=== PATIENT | male | born 1950 | race Caucasian/White ===

== ENCOUNTER 2019-06-01 16:07 | Inpatient (IN) | payer MEDICARE, OTHER ==
[~2019-06-01] VITALS: Ht 185.4 cm; Wt 90.7 kg
--- NOTE | 2019-06-01 17:13 | RAD ---
EXAM: CHEST 2 VIEWS. HISTORY: Cough. COMPARISON: None. FINDINGS: Frontal and lateral views of the chest are obtained. There is a mild airspace infiltrate in the lower lobes on the lateral projection, likely on the left on comparison with a frontal projection. There is no pneumothorax or pleural effusion. The heart is not enlarged. Hyperinflation suggests chronic obstructive pulmonary disease. There are atherosclerotic calcifications of the aorta. IMPRESSION: 1. Suspect mild left lower lobe pneumonia. Follow-up to resolution is recommended. 2. Chronic obstructive pulmonary disease. Electronically signed by: Eddie Butler MD (06/01/2019 5:11 PM) [place] [id number]
[2019-06-01] MEDS ORDERED: IV NORMAL SALINE 1,000ML 1,000 ML IV SCH (17:25)
[2019-06-01] MEDS ORDERED: AZITHROMYCIN 250 MG TABLET. PO ONE (17:30)
[2019-06-01] MEDS ORDERED: IPRATRPIUM/ALBUTEROL 0.5/2.5MG 3 ML NEBU. NEB ONE (17:30)
--- NOTE | 2019-06-01 17:48 | PHYS DOC ---
Past History Past Medical History: GERD, High Cholesterol, Other Additional Past Medical Histor: NEUROPATHY Past Surgical History: No Surgical History Alcohol Use: None Drug Use: None Adult General Chief Complaint Chief Complaint: COUGH HPI HPI Patient is a 68-year-old male who presents with report of cough that has been productive for over a month now. Patient was seen about a month ago by his primary care provider who had put him on antibiotics and patient just had not improved. There are 5 people that live in the home and everybody but this patient had been diagnosed with influenza. He was seen by his primary care doctor last week and she had considered admitting him into the hospital at that time but elected not to, thinking that it was probably just influenza. Patient states that his symptoms are getting worse and he is getting short of breath. He states that he typically has walking pneumonia once a year and he is thinking that he has pneumonia again. Patient states that the shortness of breath is worsened with exertion. He states that he is also been running a fever which has been intermittent in nature.[] Review of Systems Review of Systems Constitutional: Positive fever and chills [] Respiratory: Positive productive cough and shortness of breath [] Cardiovascular: No additional information not addressed in HPI [] Musculoskeletal: Denies back pain or joint pain [] Integument: Denies rash or skin lesions [] Neurologic: Denies headache, focal weakness or sensory changes [] All other systems were reviewed and found to be within normal limits, except as documented in this note. Current Medications Current Medications Current Medications Medications (Trade) Dose Ordered Sig/[facility] Start Time Stop Time Status Last Admin Dose Admin Albuterol/ Ipratropium (Duoneb) 3 ml 1X ONCE 06/01/19 17:30 06/01/19 17:31 UNV Amoxicillin/ Clavulanate Potassium (Augmentin 875/ 125mg) 1 tab 1X ONCE 06/01/19 17:30 06/01/19 17:31 UNV Azithromycin (Zithromax) 500 mg 1X ONCE 06/01/19 17:30 06/01/19 17:31 UNV Ceftriaxone Sodium 1 gm/ Sodium Chloride 50 ml @ 100 mls/hr 1X ONCE 06/01/19 17:30 06/01/19 17:59 UNV Sodium Chloride 1,000 ml @ 1,000 mls/hr Q1H 06/01/19 17:25 06/01/19 18:24 UNV Allergies Allergies Allergies Coded Allergies Type Severity Reaction Last Updated Verified No Known Drug Allergies 06/01/19 No Physical Exam Physical Exam Constitutional: Well developed, well nourished, no acute distress, non-toxic appearance. [] HENT: Normocephalic, atraumatic, bilateral external ears normal, oropharynx moist, no oral exudates, nose normal. [] Eyes: PERRLA, EOMI, conjunctiva normal, no discharge. [] Neck: Normal range of motion, no tenderness, supple. [] Cardiovascular: Regular rate and rhythm[] Lungs & Thorax: There are rhonchi in the bilateral lung bases, left greater than right to auscultation [] Abdomen: Bowel sounds normal, soft, no tenderness. [] Skin: Warm, dry, no erythema, no rash. [] Extremities: No tenderness, no cyanosis, no clubbing, ROM intact. [] Neurologic: Alert and oriented X 3, no focal deficits noted. [] Current Patient Data Vital Signs Vital Signs Date Time Temp Pulse Resp B/P (MAP) Pulse Ox O2 Delivery O2 Flow Rate FiO2 06/01/19 16:20 97.7 64 20 93 Room Air EKG EKG [] Radiology/Procedures Radiology/Procedures [] Impressions: PROCEDURE: CHEST PA & LATERAL EXAM: CHEST 2 VIEWS. HISTORY: Cough. COMPARISON: None. FINDINGS: Frontal and lateral views of the chest are obtained. There is a mild airspace infiltrate in the lower lobes on the lateral projection, likely on the left on comparison with a frontal projection. There is no pneumothorax or pleural effusion. The heart is not enlarged. Hyperinflation suggests chronic obstructive pulmonary disease. There are atherosclerotic calcifications of the aorta. IMPRESSION: 1. Suspect mild left lower lobe pneumonia. Follow-up to resolution is recommended. 2. Chronic obstructive pulmonary disease. Electronically signed by: Eddie Butler MD (06/01/2019 5:11 PM) [facility] DICTATED AND SIGNED BY: TRISTON BUTLER MD DATE: 06/01/19 2436 Course & Med Decision Making Course & Med Decision Making Pertinent Labs and Imaging studies reviewed. (See chart for details) [] Dragon Disclaimer Dragon Disclaimer This electronic medical record was generated, in whole or in part, using a voice recognition dictation system. Departure Departure: Impression: Primary Impression: Community acquired pneumonia Disposition: 09 ADMITTED INPATIENT Admitting Physician: Guerline Pradhan Condition: IMPROVED Referrals: ERICA GLYNN MD (PCP) Problem Qualifiers Primary Impression: Community acquired pneumonia Laterality: left Lung location: lower lobe of lung Qualified Codes: J18.9 - Pneumonia, unspecified organism ALBA KRAUSE Jr. DO Jun 01, 2019 17:48
[2019-06-01] MEDS ORDERED: ONDANSETRON PF 4 MG/2 ML VIAL. IV PRN (18:00)
[2019-06-01] MEDS ORDERED: MORPHINE SULFATE 2 MG/ML DISP.SYRIN. IV PRN (18:00)
[2019-06-01 18:01] LABS: BASO % 0 % (0-3); EOS # 0.2 x10^3/uL (0.0-0.7); EOS % 2 % (0-3); HEMATOCRIT 43.1 % (39.0-53.0); HEMOGLOBIN 14.6 g/dL (13.0-17.5); LYMPH % 19 % (24-48); MEAN CORPUSCULAR HEMOGLOBIN 29 pg (25-35); MEAN CORPUSCULAR HGB CONC 34 g/dL (31-37); MEAN CORPUSCULAR VOLUME 87 fL (79-100); MONO # 0.8 x10^3/uL (0.0-1.1); MONO % 8 % (0-9); NEUT # 7.5 x10^3uL (1.8-7.7); NEUT % 71 % (31-73); PLATELET COUNT 325 x10^3/uL (140-400); RED BLOOD COUNT 4.98 x10^6/uL (4.30-5.70); RED CELL DISTRIBUTION WIDTH 14.2 % (11.5-14.5); WHITE BLOOD COUNT 10.6 x10^3/uL (4.0-11.0)
[2019-06-01 18:12] LABS: CALCIUM 8.3 mg/dL (8.5-10.1); CREATININE 0.9 mg/dL (0.7-1.3); GFR 83.9; POTASSIUM 3.6 mmol/L (3.5-5.1)
[2019-06-01 18:18] LABS: ALBUMIN/GLOBULIN RATIO 0.9 (1.0-1.7); TOTAL BILIRUBIN 0.3 mg/dL (0.2-1.0); TOTAL PROTEIN 6.2 g/dL (6.4-8.2)
[2019-06-01] MEDS ORDERED: IV NORMAL SALINE 50ML 50 ML ONE (18:18)
[2019-06-01] MEDS ORDERED: cefTRIAXone SODIUM 1 GM VIAL ONE (18:18)
[2019-06-01] MEDS ORDERED: IPRATROPIUM BROMIDE 0.06% NASAL SPRAY 15ML BOTTLE NS SCH (20:00)
[2019-06-01] MEDS ORDERED: ZOLPIDEM 5 MG TABLET. PO PRN (20:00)
[2019-06-01] MEDS ORDERED: AMOXICILLIN/K CLAV 875/125MG TABLET. PO ONE (20:00)
[2019-06-01 20:18] VITALS: BP 128/68
[2019-06-01] MEDS: IPRATRPIUM/ALBUTEROL 0.5/2.5MG 3 ML NEBU. NEB SCH (21:22)
[2019-06-01 22:45] VITALS: BP 141/67
[2019-06-02] MEDS ORDERED: ATOR10TA60 PO (02:32)
[2019-06-02] MEDS ORDERED: FINA5TAB4 PO (02:32)
[2019-06-02] MEDS ORDERED: OMEP20CA16 PO (02:32)
[2019-06-02] MEDS ORDERED: GABA600T7 PO (02:32)
[2019-06-02] MEDS ORDERED: TAMS0.4C97 PO (02:32)
[2019-06-02 05:10] VITALS: BP 144/72
[2019-06-02] MEDS: IPRATRPIUM/ALBUTEROL 0.5/2.5MG 3 ML NEBU. NEB SCH ×3 (05:20→15:53)
[2019-06-02 07:43] LABS: CALCIUM 8.1 mg/dL (8.5-10.1); GFR 74.3
[2019-06-02 07:46] LABS: BASO % 1 % (0-3); EOS # 0.2 x10^3/uL (0.0-0.7); EOS % 2 % (0-3); HEMATOCRIT 38.1 % (39.0-53.0); HEMOGLOBIN 12.9 g/dL (13.0-17.5); LYMPH # 1.8 x10^3/uL (1.0-4.8); LYMPH % 23 % (24-48); MEAN CORPUSCULAR HEMOGLOBIN 29 pg (25-35); MEAN CORPUSCULAR HGB CONC 34 g/dL (31-37); MEAN CORPUSCULAR VOLUME 86 fL (79-100); MONO # 0.6 x10^3/uL (0.0-1.1); MONO % 7 % (0-9); NEUT # 5.3 x10^3uL (1.8-7.7); NEUT % 67 % (31-73); PLATELET COUNT 277 x10^3/uL (140-400); RED BLOOD COUNT 4.41 x10^6/uL (4.30-5.70); RED CELL DISTRIBUTION WIDTH 13.8 % (11.5-14.5); WHITE BLOOD COUNT 7.9 x10^3/uL (4.0-11.0)
[2019-06-02 08:09] LABS: POTASSIUM 2.7 mmol/L (3.5-5.1)
[2019-06-02] MEDS: LACTOBACILLUS RHAMNOSUS GG 1 CAPSULE. PO SCH ×2 (08:45→21:24)
[2019-06-02] MEDS: POTASSIUM BICARB 20 MEQ EFFERVESCENT TABLET. FT SCH ×4 (08:46→21:23)
[2019-06-02 10:53] VITALS: BP 126/66
[2019-06-02 15:34] VITALS: BP 140/65
[2019-06-02] MEDS: AZITHROMYCIN 250 MG TABLET. PO SCH (17:25)
--- NOTE | 2019-06-02 18:18 | HP ---
ADMIT DATE: 06/01/2019 HISTORY OF PRESENT ILLNESS: The patient is a 68-year-old male patient who presented to the Emergency Room with complaint of cough that is productive for over a month now. The patient was seen about a month ago by his primary care provider who had put him on antibiotic and the patient just had not improved. There are five people that live in the home and everybody, but this patient has been diagnosed with influenza. He was seen by his primary doctor last week and she had considered admitting him into the hospital at that time, but elected not to thinking that it was probably just influenza. The patient states that his symptoms are getting worse and he is getting more short of breath. He states that he typically has walking pneumonia once a year and he is thinking that he has pneumonia again. His shortness of breath is worsened by exertion. He has also been running fever, which has been intermittent in nature. He was extensively investigated in the Emergency Room. His white cell count was normal. His chemistry was unremarkable. His chest x-ray showed that there is mild airspace infiltrate in the lower lobe on the lateral projection, likely on the left in comparison with the frontal projection. There is no pneumothorax, pleural effusion. The heart is not enlarged, hyperinflation to suggest chronic obstructive pulmonary disease. There is atherosclerotic calcification of the aorta. The patient was admitted with community-acquired pneumonia, was started on IV Rocephin and Zithromax. PAST MEDICAL HISTORY: Significant for hyperlipidemia and benign prostatic hypertrophy. He has also had peripheral neuropathy. PAST SURGICAL HISTORY: Significant for back surgery, left elbow surgery and left shoulder surgery. He had double hernia repair. ALLERGIES: He has no known drug allergies. MEDICATIONS: He is currently on following medications: He is on tamsulosin and Flomax 0.4 mg daily. He is on atorvastatin calcium 10 mg at bedtime, gabapentin 600 mg every 8 hours, omeprazole 20 mg once a day, finasteride 5 mg daily. FAMILY HISTORY: He has 2 brothers and 2 sisters, all diabetic. His father at the age of 39 because of alcoholic cirrhosis. Mother at the age of 62 because of alcoholism. SOCIAL HISTORY: He is , has a son and daughter. He never smoked, does not drink alcohol or use any recreational drugs. 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 REVIEW OF SYSTEMS: Unremarkable. PHYSICAL EXAMINATION: GENERAL: On arrival to the Emergency Room, he looked well and was clearly in no apparent respiratory distress. No pallor, jaundice, cyanosis or thyromegaly. No jugular venous distention. No lower limb edema. VITAL SIGNS: His heart rate was 64, blood pressure was 112/71, temperature was 97.7, respiratory rate was 20 and oxygen saturation was 93%. HEAD, EYES, EARS, NOSE AND THROAT: Showed normocephalic, atraumatic. NECK: Supple. CARDIAC: Normal first and second heart sounds. No gallop or murmur. CHEST: Clear to auscultation. No crepitation or rhonchi. Apparently in the Emergency Room, he had rhonchi bilaterally, left greater than the right. ABDOMEN: Soft, nontender. NEUROLOGIC: He was awake, alert, responding appropriately with no obvious focal deficit. LABORATORY DATA: Showed that his white cell count was 10,600, hemoglobin 14.6, hematocrit 43, MCV 87 and platelet count of 325,000. Serum sodium of 145, potassium 3.6, chloride 108, bicarbonate 26, anion gap of 11, BUN 20, creatinine 0.9, estimated GFR was 84 mL per minute. His glucose was 85, calcium was 8.3. Total bilirubin, AST, ALT, alkaline phosphatase were normal. Total protein 6.2, albumin 3. Chest x-ray showed that he has left lower lobe pneumonia. ASSESSMENT AND PLAN: The patient was admitted with community-acquired pneumonia. We will continue all his home medication, continue with Rocephin and Zithromax as well as bronchodilator and follow his labs closely. NEERAJ GONZALEZ MD DR: HEIKE/divya JOB#: [id number] / [id number]
[2019-06-02 18:55] VITALS: BP 140/67
[2019-06-02] MEDS ORDERED: GABAPENTIN 300 MG CAPSULE. PO PRN (21:00)
[2019-06-02] MEDS: ATORVASTATIN CALCIUM 10 MG TABLET. PO SCH (21:24)
[2019-06-02 22:25] VITALS: BP 133/66
--- NOTE | 2019-06-03 02:19 | PN ---
DATE: 06/02/2019 SUBJECTIVE: The patient is resting, slightly propped up in bed, continued to complain of cough with greenish sputum. Denied any chest pain. Continued to complain of some shortness of breath, particularly on exertion. No fever. PHYSICAL EXAMINATION: GENERAL: When I examined him, he looked well and was clearly in no apparent respiratory distress. VITAL SIGNS: His heart rate was 66, blood pressure 144/72, temperature 97.7, respiratory rate 20, and oxygen saturation was 92%. HEAD, EYES, EARS, NOSE AND THROAT: Normocephalic, atraumatic. NECK: Supple. CARDIAC: Normal first and second heart sounds. No gallop, rub or murmur. CHEST: Shows central trachea, equal bilateral expansion, air entry, vesicular sounds. I could not really appreciate any crepitation or rhonchi. ABDOMEN: Soft, nontender. NEUROLOGIC: He was grossly intact. LABORATORY DATA: His lab work this morning showed a serum sodium of 145, potassium 3.7, chloride 108, bicarbonate 24, anion gap of 13, BUN 13, creatinine 1, estimated GFR was 74 mL per minute, his glucose was 109, calcium was 8.1. His white cell count was 7900, hemoglobin 12.9, hematocrit 38, MCV 86 and platelet count 277,000. ASSESSMENT: 1. Community-acquired pneumonia for which he is on Zithromax and ceftriaxone. 2. Gastroesophageal reflux disease. 3. Hyperlipidemia. 4. Benign prostatic hypertrophy. 5. Hypokalemia. PLAN: To replenish his potassium and we will repeat all his labs tomorrow. NEERAJ GONZALEZ MD DR: HEIKE/divya JOB#: [id number] / [id number]
[2019-06-03 05:58] VITALS: BP_SYST 128; BP_SYST 163; BP_DIAS 66; BP_DIAS 99
[2019-06-03 07:58] LABS: CALCIUM 8.4 mg/dL (8.5-10.1); CREATININE 0.9 mg/dL (0.7-1.3); GFR 83.9; POTASSIUM 3.7 mmol/L (3.5-5.1)
[2019-06-03] MEDS ORDERED: POTASSIUM CHLORIDE 20 MEQ TABLET.ER. PO ONE (08:15)
[2019-06-03] MEDS: PANTOPRAZOLE 40 MG TABLET. PO SCH (08:17)
[2019-06-03] MEDS: TAMSULOSIN 0.4 MG CAP.ER.24H. PO SCH (08:17)
[2019-06-03] MEDS: LACTOBACILLUS RHAMNOSUS GG 1 CAPSULE. PO SCH ×2 (08:17→21:08)
[2019-06-03] MEDS: FINASTERIDE 5 MG TABLET PO SCH (08:17)
[2019-06-03 10:56] VITALS: BP 116/70
[2019-06-03] MEDS: methylPREDNISolone SOD SUCC PF 40 MG/ML VIAL. IV SCH ×2 (14:07→21:08)
[2019-06-03 14:35] VITALS: BP 149/81
--- NOTE | 2019-06-03 15:19 | PN ---
DATE: 06/03/2019 SUBJECTIVE: The patient is resting, slightly propped up in bed, continued to have recurrent bouts of hacking cough with scanty yellowish sputum. Denied any chest pain. Did have some chest tightness and wheezing. PHYSICAL EXAMINATION: GENERAL: When I examined him, he looked well, slightly tachypneic, but there is no jaundice, cyanosis or thyromegaly. No jugular venous distension. No limb edema. VITAL SIGNS: Heart rate was 68, blood pressure 116/70, temperature 97.8, respiratory rate 20, and oxygen saturation was 92%. HEAD, EYES, EARS, NOSE AND THROAT: Showed normocephalic, atraumatic. NECK: Supple. HEART: Showed normal first and second heart sounds. No gallop or murmur. CHEST: Examination of the chest showed that he has central trachea, equally reduced expansion, reduced air entry, vesicular sounds with bilateral scattered rhonchi and crepitation mostly in the left side posteriorly. ABDOMEN: Distended, soft, nontender. NEUROLOGIC: He was awake, alert, responding appropriately. All cranial nerves intact. He moves extremities without difficulty. He ambulates without assistance or assistive devices. His intake was 816, output was recorded. LABORATORY DATA: His lab work this morning showed a serum sodium 144, potassium 3.7, chloride 108, bicarbonate 28, anion gap of 8, BUN 13, creatinine 0.9, estimated GFR was 84 mL per minute. His glucose was 90, calcium was 8.4. White cell count is down to 7900, hemoglobin 13, hematocrit 38, MCV 86 and platelet count 277,000. ASSESSMENT: 1. Community-acquired pneumonia for which he is on Zithromax and ceftriaxone. 2. Probable chronic obstructive pulmonary disease. His chest x-ray showed that he has emphysematous changes. 3. Gastroesophageal reflux disease. 4. Hyperlipidemia. 5. Benign prostatic hypertrophy. 6. Hypokalemia that has resolved. PLAN: To continue with present regimen. I will add also Solu-Medrol as well as Zithromax and we will keep an eye. We will monitor his lab work to make sure that his potassium remains stable. NEERAJ GONZALEZ MD DR: HEIKE/divya JOB#: [id number] / [id number]
[2019-06-03] MEDS: AZITHROMYCIN 250 MG TABLET. PO SCH (18:10)
[2019-06-03 19:04] VITALS: BP 135/72
[2019-06-03] MEDS: ATORVASTATIN CALCIUM 10 MG TABLET. PO SCH (21:08)
[2019-06-03 22:59] VITALS: BP 160/80
[2019-06-04 05:28] VITALS: BP 130/73
[2019-06-04 06:31] LABS: HEMATOCRIT 42.5 % (39.0-53.0); HEMOGLOBIN 14.2 g/dL (13.0-17.5); RED BLOOD COUNT 4.86 x10^6/uL (4.30-5.70); RED CELL DISTRIBUTION WIDTH 14.2 % (11.5-14.5); WHITE BLOOD COUNT 13.8 x10^3/uL (4.0-11.0)
[2019-06-04 06:35] LABS: CALCIUM 8.9 mg/dL (8.5-10.1); CREATININE 0.9 mg/dL (0.7-1.3); GFR 83.9; POTASSIUM 4.1 mmol/L (3.5-5.1)
[2019-06-04] MEDS: LACTOBACILLUS RHAMNOSUS GG 1 CAPSULE. PO SCH (08:20)
[2019-06-04] MEDS: TAMSULOSIN 0.4 MG CAP.ER.24H. PO SCH (08:21)
[2019-06-04] MEDS: PANTOPRAZOLE 40 MG TABLET. PO SCH (08:21)
[2019-06-04] MEDS: FINASTERIDE 5 MG TABLET PO SCH (08:21)
[2019-06-04] MEDS: methylPREDNISolone SOD SUCC PF 40 MG/ML VIAL. IV SCH (08:22)
[2019-06-04 10:53] VITALS: BP 131/68
[2019-06-04] MEDS ORDERED: CEFD300C PO (13:03)
[2019-06-04] MEDS ORDERED: ALBU2.5V8 IH (13:08)
[2019-06-04] MEDS ORDERED: AZIT1PAC PO (13:08)
--- NOTE | 2019-06-04 14:26 | DS ---
DATE OF DISCHARGE: HOSPITAL COURSE: The patient is resting, slightly propped up in bed, no apparent distress, awake, alert. On questioning him, he denied any further episode of chest tightness or shortness of breath. He continued to have occasional episodes of cough that is mostly dry. PHYSICAL EXAMINATION: GENERAL: When I examined him, he looked well and was clearly in no apparent respiratory distress. No pallor, jaundice, cyanosis or thyromegaly. No jugular venous distension. No limb edema. VITAL SIGNS: Her heart rate was 66, blood pressure was 131/68, temperature 97.4, respiratory rate 20, and oxygen saturation was 92%. HEAD, EYES, EARS, NOSE AND THROAT: Showed normocephalic, atraumatic. NECK: Supple. HEART: Showed normal first and second heart sounds. No gallop or murmur. CHEST: Clear to auscultation. No crepitation or rhonchi. ABDOMEN: Slightly distended, soft, nontender. NEUROLOGIC: He is awake, alert, responding appropriately. All cranial nerves are intact. EXTREMITIES: She moves extremities without difficulty, ambulates without assistance or assistive devices. LABORATORY DATA: As of this morning showed a serum sodium 141, potassium 4.1, chloride 106, bicarbonate 25, anion gap of 10, BUN 19, creatinine 0.9, estimated GFR was 84 mL per minute, his glucose 189, calcium was 8.9. White cell count was 13,800, hemoglobin 14, hematocrit 42, MCV 87 and platelet count 326,000. His blood cultures are negative after 2 days. DISCHARGE MEDICATIONS: The patient was discharged home to continue on albuterol sulfate 2 puffs every 4 hours as needed, Zithromax, Z-ALVIN as directed, cefdinir 300 mg twice a day for 7 days, atorvastatin calcium 10 mg at bedtime, finasteride 5 mg daily, gabapentin 600 mg every 8 hours, omeprazole 20 mg once a day and Flomax 0.4 mg daily. FINAL DISCHARGE DIAGNOSES: 1. Community-acquired pneumonia for which he is on Zithromax and ceftriaxone. 2. Probable chronic obstructive pulmonary disease. Her chest x-ray showed that he has emphysematous changes. 3. Gastroesophageal reflux disease. 4. Hyperlipidemia. 5. Benign prostatic hypertrophy. 6. Hypokalemia, it has resolved. NEERAJ GONZALEZ MD DR: Malou JOB#: [id number] / [id number]
== END 2019-06-04 14:30 | disposition home or self-care (01) | DRG 190 ==
LOC: ER 16:07 → 1 SOUTH 18:45
PROVIDERS: ADMIT Internal Medicine; ATTEND Internal Medicine
DX: J44.0 Chronic obstructive pulmonary disease with (acute) lower respiratory infection (principal); J18.9 Pneumonia, unspecified organism; K21.9 Gastro-esophageal reflux disease without esophagitis; E78.00 Pure hypercholesterolemia, unspecified; E78.5 Hyperlipidemia, unspecified; N40.0 Benign prostatic hyperplasia without lower urinary tract symptoms; E87.6 Hypokalemia; G62.9 Polyneuropathy, unspecified; Z83.3 Family history of diabetes mellitus
CPT/HCPCS: 36415; 71046; 80048; 80053; 84132; 85025; 85027; 87040; 94640; 96365; J0456; J0696; J2920; J7620; 99285-25; J7030